=== PATIENT | female | born 1935 | race Caucasian/White ===

== ENCOUNTER 2019-12-20 19:56 | Inpatient (IN) | payer OTHER, BC ==
[2019-12-20 20:03] VITALS: BMI 18.3
--- NOTE | 2019-12-20 22:43 | PDOC ---
Documentation entered by Shelly Anderson SCRIBE, acting as scribe for Hilda Vargas DO. Hilda Vargas DO: This documentation has been prepared by the Justin carrillo Nirvannie, SCRIBE, under my direction and personally reviewed by me in its entirety. I confirm that the documentation accurately reflects all work, treatment, procedures, and medical decision making performed by me. History of Present Illness - General Chief Complaint: Injury Stated Complaint: FALL Time Seen by Provider: 12/20/19 20:28 History Source: Patient Exam Limitations: No Limitations - History of Present Illness Initial Comments: 12/20/19 22:14 The patient is a 84 year old female, with a significant past medical history of hypertension and Afib (on Xarelto), who presents to the emergency department s/ p mechanical fall with headache, low back, right upper arm, and left wrist pain. As per patient and family, she fell over the family dog. Patient is unaware if she hit her head. She denies recent chest pain or shortness of breath. Allergies: NKDA Past History - Past Medical History Allergies/Adverse Reactions: Allergies Allergy/AdvReac Type Severity Reaction Status Date / Time No Known Allergies Allergy Verified 12/20/19 20:02 Anemia: Yes Cardiac Disorders: Yes (A-FIB) COPD: No HTN: Yes - Psycho Social/Smoking Cessation Hx Smoking History: Never smoked Review of Systems - Review of Systems Able to Perform ROS?: Yes Comments:: 12/20/19 22:14 GENERAL/CONSTITUTIONAL: No fever or chills. No weakness. HEAD, EYES, EARS, NOSE AND THROAT: No change in vision. No ear pain or discharge. No sore throat. GASTROINTESTINAL: No nausea, vomiting, diarrhea or constipation. GENITOURINARY: No dysuria, frequency, or change in urination. CARDIOVASCULAR: No chest pain or shortness of breath. RESPIRATORY: No cough, wheezing, or hemoptysis. MUSCULOSKELETAL: +Low back pain. + Right upper arm pain. +left wrist pain, SKIN: No rash NEUROLOGIC: +Headache. No vertigo, loss of consciousness, or change in strength/ sensation. ENDOCRINE: No increased thirst. No abnormal weight change. HEMATOLOGIC/LYMPHATIC: No anemia, easy bleeding, or history of blood clots. ALLERGIC/IMMUNOLOGIC: No hives or skin allergy. All Other Systems: Reviewed and Negative *Physical Exam - Vital Signs Last Vital Signs Temp Pulse Resp BP Pulse Ox 97.7 F 84 18 179/87 H 97 12/20/19 20:00 12/20/19 20:00 12/20/19 20:00 12/20/19 20:00 12/20/19 20:00 - Physical Exam 12/20/19 22:14 GENERAL: Awake, in no acute distress HEAD: No signs of trauma EYES: PERRLA, EOMI, sclera anicteric, conjunctiva clear, visual acuity grossly intact ENT: Moist mucosa NECK: Normal ROM, supple, no lymphadenopathy or JVD. LUNGS: Breath sounds equal, clear to auscultation bilaterally. No wheezes, and no crackles. Normal work of breathing. HEART: Regular rate and rhythm, normal S1 and S2, no murmurs, rubs or gallops ABDOMEN: Soft, nontender, normoactive bowel sounds. No guarding. Non- distended. BACK: +Tenderness to the lumbosacral region. EXTREMITIES:+Tenderness and swelling to the left distal radial head. Pain with passive and active motion of the medial humerus of the right upper extremity. No clubbing or cyanosis. No erythema. NEUROLOGICAL: GCS 15. Alert, and oriented x4, Nonfocal. SKIN: Warm, Dry, normal turgor, no rashes or lesions noted. ED Treatment Course - RADIOLOGY Radiology Studies Ordered: Category Date Time Status CERVICAL SPINE CT W/O CONTR [CT] Stat CT Scan 12/20/19 20:[address] WITHOUT CONTRAST [CT] Stat CT Scan 12/20/19 20:[address] W/O CONTRAST [CT] Stat CT Scan 12/20/19 20:[address] WITHOUT CONTRAST [CT] Stat CT Scan 12/20/19 20:34 Completed HAND- LEFT [RAD] Stat Radiology 12/20/19 20:34 Taken HUMERUS-LEFT [RAD] Stat Radiology 12/20/19 20:34 Taken HUMERUS-RIGHT [RAD] Stat Radiology 12/20/19 20:34 Taken Medical Decision Making - Medical Decision Making 12/20/19 [id number] female status post fall with pain to bilateral upper extremities as well as the low back CT scan of the head cervical spine and lumbar spine as well as pelvis show no acute fracture Patient is sensory intact, motion is extremely limited in the right upper extremity due to muscle tenderness There is a distal radius fracture on the left Splint applied, neurovascularly intact both before and after application Patient is sensory intact There are no secondary signs of acute spinal cord injury Due to patient's significant pain, lack of use of both upper extremities and residing alone she will be held for observation and PT evaluation for possible placement in short-term rehab Son is at the bedside and agrees with plan She is visiting and resides in [facility] Discharge - Discharge Information Problems reviewed: Yes Clinical Impression/Diagnosis: Fracture of left distal radius Qualifiers: Encounter type: initial encounter Fracture type: closed Fracture morphology: unspecified fracture morphology Qualified Code(s): S52.502A - Unspecified fracture of the lower end of left radius, initial encounter for closed fracture Strain of right upper arm Qualifiers: Encounter type: initial encounter Qualified Code(s): S46.911A - Strain of unspecified muscle, fascia and tendon at shoulder and upper arm level, right arm , initial encounter Condition: Stable - Follow up/Referral - Patient Discharge Instructions - Post Discharge Activity
--- NOTE | 2019-12-20 23:45 | PN ---
Teaching Attending Note Name of Resident: Amrita Muniz ATTENDING PHYSICIAN STATEMENT I saw and evaluated the patient. I reviewed the resident's note and discussed the case with the resident. I agree with the resident's findings and plan as documented. SUBJECTIVE: Patient is an 84 year old woman with a PMH of Hypertension and Afib (on Xarelto) , who presents to the ER after a fall, complaining of headache, low back, right upper arm, and left wrist pain. As per patient and family, she fell over the family dog. Patient is unaware if she hit her head. She denies recent chest pain or shortness of breath. Patient lives alone and denies photophobia, vomiting, abdominal pain, dysuria, diarrhea, frequency or urgency. Denies alcohol, tobacco or illicit drug use. No sick contacts or recent travels. OBJECTIVE: Alert Vital Signs Period Temp Pulse Resp BP Sys/Munoz Pulse Ox Last 24 Hr 97.7 F 84 18 179/87 97 HEENT: No Jaundice, eye redness or discharge, PERRLA, EOMI. Normocephalic, atraumatic. External ears are normal and hearing is grossly intact. No nasal discharge. Neck: Supple, nontender. No palpable adenopathy or thyromegaly. No JVD Chest: Good effort. Clear to auscultation and percussion. Heart: Regular. No S3, rub or murmur Abdomen: Not distended, soft, nontender and no HSM. No rebound or guarding. Normal bowel sounds. Ext: Tenderness to the lumbosacral region. Tenderness and swelling to the left distal radial head. Pain with passive and active motion of the medial humerus of the right upper extremity. Unable to move upper extremities. Peripheral pulses intact. No leg edema. Skin: Warm and dry. No petechiae, rash or ecchymosis. Neuro: Alert. Oriented x3. CN 2-12 grossly intact. Sensation grossly intact in all four extremities and DTR are symmetric. Psych: Appropriate mood and affect. Good insight. Current Medications Generic Name Dose Route Start Last Admin Trade Name Freq PRN Reason Stop Dose Admin Acetaminophen 650 mg 12/21/19 02:47 Tylenol - PO Q4H PRN PAIN LEVEL 6-10 Home Medications Medication Instructions Recorded Amiodarone HCl [Cordarone -] 200 mg PO DAILY 12/21/19 Atorvastatin Ca [Lipitor] 20 mg PO HS 12/21/19 Ferrous Sulfate [Iron] 325 mg PO Q2D 12/21/19 Lisinopril [Prinivil] 5 mg PO DAILY 12/21/19 Rivaroxaban [Xarelto] 15 mg PO DAILY 12/21/19 Abnormal Lab Results 12/21/19 00:25 Chloride 109 H Anion Gap 7 L BUN 19.4 H ASSESSMENT AND PLAN: 1. Fall and Left radius fracture - No obvious precipitating factor for fall. Urinalysis, EKG and urine toxicology pending. CT scan of the head/cervical spine /lumbar spine as well as pelvis show no acute abnormality or fracture. No humerus fracture or hand fracture. Left distal radius fracture noted in the ER and was splinted. Will continue pain control and consult PT and Ortho. Monitor on telemetry and implement fall precautions. Get MRI of C-spine and repeat head CT in [address] of shoulders to rule out structural damage from this fall or prior falls. Will continue comprehensive care for all of patients comorbid conditions. 2. Uncontrolled hypertension - Restart suitable outpatient antihypertensive drugs when clinically appropriate. Revise regimen to ensure [id number] excellent BP control and recreational counselor patient on the injurious effects of uncontrolled hypertension. Nonpharmacologic measures to control hypertension like weight loss, salt restriction and exercise discussed. Importance of adherence to treatment regimen and attainment of normotension emphasized. 3. DVT prophylaxis - Lovenox 40 mg SQ q 24 hours. 4. Advance directives - Full code
[2019-12-21 00:45] LABS: HEMATOCRIT 43.5 % (32.4-45.2); HEMOGLOBIN 14.4 GM/dL (10.7-15.3); MCHC 33.1 g/dl (32.0-36.0); MEAN CELL VOLUME 93.8 fl (80-96); MEAN PLT VOLUME 8.9 fl (7.5-11.1); PLATELET COUNT 209 K/MM3 (134-434); RBC 4.64 M/mm3 (3.60-5.2); RDW 14.5 % (11.6-15.6); WHITE BLOOD COUNT 9.9 K/mm3 (4.0-10.0)
[2019-12-21 01:12] LABS: ALBUMIN 3.7 g/dl (3.4-5.0); BILIRUBIN,TOTAL 0.6 mg/dL (0.2-1); BLOOD UREA NITROGEN 19.4 mg/dL (7-18); CALCIUM 9.6 mg/dL (8.5-10.1); CREATININE 0.7 mg/dL (0.55-1.3); TOT PROT 6.7 g/dl (6.4-8.2)
--- NOTE | 2019-12-21 02:52 | HP ---
CHIEF COMPLAINT: fall PCP: @ [facility] HISTORY OF PRESENT ILLNESS: 84 y.o. F PMH HTN, A-fib on Xarelto, OA, prior b/l hip fractures now s/p left hip replacement presenting for mechanical fall. The patient lives on [address] & was visiting her children, daughter lives in [place]. She was at her daughter's house & the dog ran into her & she subsequently fell onto her R side (R arm and R buttock). Does not recall if she hit her head or fell onto her L side. Denies LOC. Patient has a history of falls & sustained fractures (b/l pelvis), follows up with doctors at [facility] where she would like to be transferred in the morning. States she lives alone but tends to her ADLs well doesnt require help. ER course was notable for: (1) L hand XR: distal radial fracture (2) htn 179/87-- resolved w/o meds (3) Recent Travel: from [place] yesterday PAST MEDICAL HISTORY: as per hpi PAST SURGICAL HISTORY: R hip ORIF Social History: Smoking: denies Alcohol: denies Drugs: denies Allergies No Known Allergies Allergy (Verified 12/20/19 20:02) HOME MEDICATIONS: Home Medications Medication Instructions Recorded Amiodarone HCl [Cordarone -] 200 mg PO DAILY 12/21/19 Atorvastatin Ca [Lipitor] 20 mg PO HS 12/21/19 Ferrous Sulfate [Iron] 325 mg PO Q2D 12/21/19 Lisinopril [Prinivil] 5 mg PO DAILY 12/21/19 Rivaroxaban [Xarelto] 15 mg PO DAILY 12/21/19 REVIEW OF SYSTEMS CONSTITUTIONAL: Absent: fever, chills, diaphoresis, generalized weakness, malaise, loss of appetite, weight change HEENT: Absent: rhinorrhea, nasal congestion, throat pain, throat swelling, difficulty swallowing, mouth swelling, ear pain, eye pain, visual changes CARDIOVASCULAR: Absent: chest pain, syncope, palpitations, irregular heart rate, lightheadedness , peripheral edema RESPIRATORY: Absent: cough, shortness of breath, dyspnea with exertion, orthopnea, wheezing, stridor, hemoptysis GASTROINTESTINAL: Absent: abdominal pain, abdominal distension, nausea, vomiting, diarrhea, constipation, melena, hematochezia GENITOURINARY: Absent: dysuria, frequency, urgency, hesitancy, hematuria, flank pain, genital pain MUSCULOSKELETAL: arthralgia Absent: myalgia, joint swelling, back pain, neck pain SKIN: Absent: rash, itching, pallor HEMATOLOGIC/IMMUNOLOGIC: Absent: easy bleeding, easy bruising, lymphadenopathy, frequent infections ENDOCRINE: Absent: unexplained weight gain, unexplained weight loss, heat intolerance, cold intolerance NEUROLOGIC: Absent: headache, focal weakness or paresthesias, dizziness, unsteady gait, seizure, mental status changes, bladder or bowel incontinence PSYCHIATRIC: Absent: anxiety, depression, suicidal or homicidal ideation, hallucinations. PHYSICAL EXAMINATION Vital Signs - 24 hr 12/20/19 12/21/19 20:00 00:50 Temperature 97.7 F Pulse Rate 84 Respiratory 18 Rate Blood Pressure 179/87 H O2 Sat by Pulse 97 97 Oximetry (%) GENERAL: Awake, alert, and fully oriented, in no acute distress. HEENT: NCAT. No JVD. MMM. LUNGS: Breath sounds equal, clear to auscultation bilaterally. No wheezes, and no crackles. No accessory muscle use. HEART: Regular rate and rhythm, normal S1 and S2 without murmur, rub or gallop. ABDOMEN: Soft, nontender, not distended, normoactive bowel sounds, no guarding, no rebound, no masses. No hepatomegaly or splenomegaly. UPPER EXTREMITIES: 2+ pulses, warm, well-perfused. Limited ROM of b/l UE. RUE-- good handgrip strength; motor 2/5, diminished ROM. LUE-- diminished handgrip strength, 2/5motor, diminished ROM. Cannot lift arms to 90 degrees. Sensation intact b/l UE. No peripheral edema. LOWER EXTREMITIES: 2+ pulses, warm, well-perfused. No calf tenderness. No peripheral edema. NEUROLOGICAL: Diminished CNXI, difficulty raising shoulders without or against resistance. PSYCHIATRIC: Appropriate mood and affect. SKIN: Small healing hematomas noted on LLE. Laboratory Results - last 24 hr 12/21/19 12/21/19 00:25 00:25 WBC 9.9 RBC 4.64 Hgb 14.4 Hct 43.5 MCV 93.8 MCH 31.0 MCHC 33.1 RDW 14.5 Plt Count 209 MPV 8.9 Sodium 142 Potassium 4.0 Chloride 109 H Carbon Dioxide 25 Anion Gap 7 L BUN 19.4 H Creatinine 0.7 Est GFR (CKD-EPI)AfAm 92.21 Est GFR (CKD-EPI)NonAf 79.56 Random Glucose 100 Calcium 9.6 Total Bilirubin 0.6 AST 27 ALT 41 Alkaline Phosphatase 116 Total Protein 6.7 Albumin 3.7 ASSESSMENT/PLAN: 84 y.o. F PMH HTN, A-fib on Xarelto, OA, prior b/l hip fractures admitted for mechanical fall #Mechanical fall -sustained L distal radial fracture, f/u final XR read -ortho consulted, Dr. Cifuentes -CT head negative for acute bleeds/ fx-- repeat CT head ordered in 24hrs as patient is on xarelto -F/u shoulder XR's, pelvis CT, humerus XR -CT C & L spine negative for fracture; incidental 5.4x4cm R post adnexal cyst noted -f/u UA -poss neuro eval-- patient may benefit from MRI C-spine as she states she has minimal ROM of RUE at baseline #A-fib -resume xarelto -ct head negative for acute bleeds -EKG requested from [facility]; EKG here pending, f/u #HTN -resume home anti HTN meds #OA -patient cannot remember date of last DEXA, may be beneficial on this visit #dispo med surg Visit type - Emergency Visit Emergency Visit: Yes ED Registration Date: 12/20/19 Care time: The patient presented to the Emergency Department on the above date and was hospitalized for further evaluation of their emergent condition. - New Patient This patient is new to me today: Yes Date on this admission: 12/21/19 - Critical Care Critical Care patient: No ATTENDING PHYSICIAN STATEMENT I saw and evaluated the patient. I reviewed the resident's note and discussed the case with the resident. I agree with the resident's findings and plan as documented. SUBJECTIVE: OBJECTIVE: ASSESSMENT AND PLAN:
[2019-12-21] MEDS: ACETAMINOPHEN 325 MG TABLET (FP) PO PRN ×4 (03:11→16:10)
[2019-12-21 06:12] LABS: URINE APPEARANCE TURBID; URINE BILIRUBIN NEGATIVE (NEGATIVE); URINE COLOR YELLOW; URINE GLUCOSE (UA) NEGATIVE (NEGATIVE); URINE KETONE NEGATIVE (NEGATIVE); URINE LEUK ESTERASE NEGATIVE (NEGATIVE); URINE NITRITE NEGATIVE (NEGATIVE); URINE PROTEIN NEGATIVE (NEGATIVE)
[2019-12-21 07:55] LABS: BASO % 0.6 % (0-2.0); HEMATOCRIT 37.3 % (32.4-45.2); HEMOGLOBIN 12.6 GM/dL (10.7-15.3); LYMPH % 13.2 % (8-40); MCH 31.2 pg (25.7-33.7); MCHC 33.8 g/dl (32.0-36.0); MEAN CELL VOLUME 92.3 fl (80-96); MEAN PLT VOLUME 9.2 fl (7.5-11.1); MONO % 11.2 % (3.8-10.2); PLATELET COUNT 192 K/MM3 (134-434); RBC 4.04 M/mm3 (3.60-5.2); RDW 14.4 % (11.6-15.6); WHITE BLOOD COUNT 7.4 K/mm3 (4.0-10.0)
[2019-12-21 08:02] LABS: INR 1.06 (0.83-1.09); PROTHROMBIN TIME (PATIENT) 12.5 SEC (9.7-13.0)
[2019-12-21 08:05] LABS: ACTIVATED PTT 37.3 SECONDS (25.2-36.5)
--- NOTE | 2019-12-21 08:47 | CONSULT ---
Consult - text type - Consultation Consultation Note: ORTHOPEDIC SURGERY CONSULTATION NOTE Department of Orthopedic Surgery HISTORY OF PRESENT ILLNESS Ms Cruz is a 84 year old right hand dominant female with PMH of HTN, A-fib on Xarelto, OA, prior b/l hip fractures now s/p left hip replacement s/p years ago presenting after mechanical fall. The patient lives on [address] & was visiting her children, daughter lives in [place].who presents to [facility] after a fall. The orthopedic service was consulted for a left distal radius fracture. She also complains of not being able to flex her right shoulder which is new after her fall. The patient notes pain and swelling of her left wrist, worse with movement. Denies any other injuries. Denies numbness, tingling or other constitutional complaints. The patient is retired; Denies tobacco use, drug use , alcohol abuse. The patient lives alone at home and uses no assistive devices at baseline. FAMILY HISTORY non-contributory REVIEW OF SYMPTOMS A twelve-point review of systems was performed and was negative except as noted in HPI. PHYSICAL EXAM Constitutional: Alert and oriented to person, place, and time. Appears well- developed and well-nourished. No acute distress, appropriate mood and affect. Right Upper Extremity: Skin warm, dry, and intact; no lesions, rashes or ulcers noted. Muscle mass equal and symmetric to contralateral side. No atrophy noted. No masses or effusions noted. Non-tender to palpation at the shoulder, however she is unable to actively flex her shoulder; PROM of FF of the right shoulder is to 120 wiht mild to moderate pain; LROM at the shoulder secondary to pain. nontender throughout rest of extremity. Full passive and active ROM of the elbow and wrist, free from pain. Joints stable with no pathologic laxity. M/R/U/ MSK/AX motor intact; SILT distally; 2+ radial pulses; Cap refill brisk. Tone and reflexes normal. Left Upper Extremity: Skin warm, dry, and intact; no lesions, rashes or ulcers noted. Muscle mass equal and symmetric to contralateral side. No atrophy noted. No masses or effusions noted. Tender to palpation at tbe left wrist; nontender throughout rest of extremity. LROM of the wrist secondary to pain and swelling; Full passive and active ROM of the shoulder and elbow, free from pain. Joints stable with no pathologic laxity. M/R/U/MSK/AX motor intact; SILT distally; 2+ radial pulses; Cap refill brisk. Tone and reflexes normal. Right Lower Extremity: Skin warm, dry, and intact; no lesions, rashes or ulcers noted. Muscle mass equal and symmetric to contralateral side. No atrophy noted. No masses or effusions noted. No tenderness to palpation all joints; nontender throughout rest of extremity. No cords or calf tenderness; Able to SLR; Negative log roll test; No significant calf/ankle edema. Full passive and active ROM, free from pain. Joints stable with no pathologic laxity. EHL/TA/GS motor intact; SILT distally; 2+ DP pulses; Cap refill brisk. Tone and reflexes normal. Left Lower Extremity: Skin warm, dry, and intact; no lesions, rashes or ulcers noted. Muscle mass equal and symmetric to contralateral side. No atrophy noted. No masses or effusions noted. No tenderness to palpation all joints; nontender throughout rest of extremity. No cords or calf tenderness; Able to SLR; Negative log roll test; No significant calf/ankle edema. Full passive and active ROM, free from pain. Joints stable with no pathologic laxity. EHL/TA/GS motor intact; SILT distally; 2+ DP pulses; Cap refill brisk. Tone and reflexes normal. Active Problems Problem Status Category Onset Fracture of left distal radius Acute Medical Strain of right upper arm Acute Medical Social History Smoking history Never smoked Hx Alcohol Use No Allergies Allergy/AdvReac Type Severity Reaction Status Date / Time No Known Allergies Allergy Verified 12/20/19 20:02 Active Medications Generic Name Dose Route Start Last Admin Trade Name Freq PRN Reason Stop Dose Admin Acetaminophen 650 mg 12/21/19 02:47 12/21/19 07:16 Tylenol - PO 650 mg Q4H PRN Administration PAIN LEVEL 6-10 Vital Signs (last) Temp Pulse Resp BP Pulse Ox 99.4 F 77 16 147/78 94 L 12/21/19 06:39 12/21/19 06:39 12/21/19 06:39 12/21/19 02:41 12/21/19 03:07 Intake and Output 12/19/19 12/20/19 12/21/19 23:59 23:59 23:59 Intake Total 0 Balance 0 Intake: Oral 0 Other: Voiding Method Bedpan # Unmeasured Voids Void 1 Bowel Movement No Weight 100 lb 100 lb 6.4 oz Height 5 ft 2 in 5 ft 2 in Body Mass Index (BMI) 18.3 18.3 Weight Measurement Method [facility] Measurement Method Est/Stated by Patient Laboratory 12/21/19 06:56 PT with INR 12.50 SEC (9.7-13.0) 12/21/19 06:56 PTT (Actin FS) 37.3 SECONDS (25.2-36.5) H 12/21/19 06:56 IMAGING I personally reviewed all radiographs, CT, and other imaging. They demonstrate a left distal radius fracture. ASSESSMENT AND PLAN Ms. Cruz is a 84 year old female presenting status post mechanical fall with a left sided distal radius fracture, and likely rotator cuff tear of the right shoulder. We have reviewed the imaging and clinical findings in detail, as well as their potential implications. After appropriate informed discussion, the patient was placed in a well-padded splint. Patient was instructed regarding: non weight bearing on fractured side. signs and symptoms of compartment syndrome and need to seek immediate care should new onset numbness, tingling, or significantly increasing pain occur. maintain strict elevation above the level of the heart for the next 3-4 days. keeping the splint clean and dry. avoiding NSAID medications. All questions were answered. Thank you for involving our team in the care of this patient. Please have patient follow up in our office in 1-2 weeks either with her own orthopedic surgeon at [facility] in , or in our office. Thank you. PROCEDURE NOTE: After informed consent was obtained, a slight reduction maneuver was performed, and the patient was placed in a well-padded sugartong splint. She tolerated the procedure well and was instructed on splint management and icing and elevating. She understood and felt relief after the splint was applied.
[2019-12-21 08:51] LABS: ALBUMIN 3.2 g/dl (3.4-5.0); BILIRUBIN,TOTAL 0.6 mg/dL (0.2-1); BLOOD UREA NITROGEN 18.8 mg/dL (7-18); CALCIUM 9.2 mg/dL (8.5-10.1); CREATININE 0.6 mg/dL (0.55-1.3); POTASSIUM 3.8 mmol/L (3.5-5.1); TOT PROT 5.8 g/dl (6.4-8.2)
--- NOTE | 2019-12-21 09:19 | PN ---
Teaching Attending Note Name of Resident: Roxana Hahn ATTENDING PHYSICIAN STATEMENT I saw and evaluated the patient. I reviewed the resident's note and discussed the case with the resident. I agree with the resident's findings and plan as documented. SUBJECTIVE: Patient is a 84yof with PMhx of HTN, A-fib on Xarelto, OA, prior b/l hip fractures now s/p left hip replacement presenting for mechanical fall. OBJECTIVE: Initial Vital Signs Temp Pulse Resp BP Pulse Ox 97.7 F 84 18 179/87 H 97 12/20/19 20:00 12/20/19 20:00 12/20/19 20:00 12/20/19 20:00 12/20/19 20:00 Vital Signs Temperature 99.4 F 12/21/19 06:39 Pulse Rate 77 12/21/19 06:39 Respiratory Rate 16 12/21/19 06:39 Blood Pressure 147/78 12/21/19 02:41 O2 Sat by Pulse Oximetry (%) 94 L 12/21/19 03:07 GENERAL: The patient is awake, alert, and fully oriented, in no acute distress. HEAD: Normal with no signs of trauma. EYES: PERRL, EOMI, sclera anicteric, conjunctiva clear. ENT: Ears normal, oropharynx clear without exudates, moist mucous membranes. NECK: Trachea midline, full range of motion, supple. LUNGS: Breath sounds equal, clear to auscultation bilaterally, no wheezes, no crackles, no accessory muscle use. HEART: RRR, S1, S2 without murmur, rub or gallop. ABDOMEN: Soft, NT,ND, normoactive bowel sounds, no guarding, no rebound, no hepatosplenomegaly, no masses. EXTREMITIES: 2+ pulses, warm, well-perfused, left distal radial fracture s/p casting NEUROLOGICAL: Cranial nerves II through XII grossly intact. Normal speech, gait not observed. PSYCH: Normal mood, normal affect. SKIN: Warm, dry, normal turgor, no rashes or lesions noted CBCD WBC 7.4 K/mm3 (4.0-10.0) 12/21/19 06:56 RBC 4.04 M/mm3 (3.60-5.2) 12/21/19 06:56 Hgb 12.6 GM/dL (10.7-15.3) 12/21/19 06:56 Hct 37.3 % (32.4-45.2) 12/21/19 06:56 MCV 92.3 fl (80-96) 12/21/19 06:56 MCHC 33.8 g/dl (32.0-36.0) 12/21/19 06:56 RDW 14.4 % (11.6-15.6) 12/21/19 06:56 Plt Count 192 K/MM3 (134-434) 12/21/19 06:56 MPV 9.2 fl (7.5-11.1) 12/21/19 06:56 CMP Sodium 141 mmol/L (136-145) 12/21/19 06:56 Potassium 3.8 mmol/L (3.5-5.1) 12/21/19 06:56 Chloride 110 mmol/L (98-107) H 12/21/19 06:56 Carbon Dioxide 23 mmol/L (21-32) 12/21/19 06:56 Anion Gap 8 MMOL/L (8-16) 12/21/19 06:56 BUN 18.8 mg/dL (7-18) H 12/21/19 06:56 Creatinine 0.6 mg/dL (0.55-1.3) 12/21/19 06:56 Random Glucose 85 mg/dL (74-106) 12/21/19 06:56 Calcium 9.2 mg/dL (8.5-10.1) 12/21/19 06:56 Total Bilirubin 0.6 mg/dL (0.2-1) 12/21/19 06:56 AST 22 U/L (15-37) 12/21/19 06:56 ALT 37 U/L (13-61) 12/21/19 06:56 Alkaline Phosphatase 101 U/L (45-117) 12/21/19 06:56 Total Protein 5.8 g/dl (6.4-8.2) L 12/21/19 06:56 Albumin 3.2 g/dl (3.4-5.0) L 12/21/19 06:56 Current Medications Generic Name Dose Route Start Last Admin Trade Name Freq PRN Reason Stop Dose Admin Acetaminophen 650 mg 12/21/19 02:47 12/21/19 07:16 Tylenol - PO 650 mg Q4H PRN Administration PAIN LEVEL 6-10 Home Medications Medication Instructions Recorded Amiodarone HCl [Cordarone -] 200 mg PO DAILY 12/21/19 Atorvastatin Ca [Lipitor] 20 mg PO HS 12/21/19 Ferrous Sulfate [Iron] 325 mg PO Q2D 12/21/19 Lisinopril [Prinivil] 5 mg PO DAILY 12/21/19 Rivaroxaban [Xarelto] 15 mg PO DAILY 12/21/[address]: no fx is identified.Adnexal cyst 5.4x4cm. Left hand xray ; loss of bone density , acute impaction fracture of distal radius , possible old ulnar styloid fx Ct of the head: negative X-ray of right humurus: degenerative changes , no sign of fx or sublaxation. Pelvis CT: no definite CT evidence of acute fx , adnexal cyst 5.4x4cm right posterior -CT C & L spine negative for fracture; incidental 5.4x4cm R post adnexal cyst noted ASSESSMENT AND PLAN: Patient is an 84yof with PMHx of HTN, A-fib on Xarelto, OA, prior b/l hip fractures admitted for mechanical fall. #s/p Mechanical fall s/p L distal radial fracture, ortho on the case who has seen the patient in Ed. #A-fib continue xarelto #HTN: continue home meds #hx of hip replacement # Hx of OA , added Vit d3 continue #Right posterior adnexal mass : outpatient w/u #CT head negative for acute bleeds, repeat CT head since patient is on xarelto , but patient refused. DVt px: SCDs for now.
--- NOTE | 2019-12-21 11:53 | EKG ---
Test Reason : Blood Pressure : / mmHG Vent. Rate : 075 BPM Atrial Rate : 075 BPM P-R Int : 212 ms QRS Dur : 138 ms QT Int : 476 ms P-R-T Axes : 057 -12 087 degrees QTc Int : 531 ms SINUS RHYTHM WITH 1ST DEGREE A-V BLOCK LEFT BUNDLE BRANCH BLOCK ABNORMAL ECG NO PREVIOUS ECGS AVAILABLE Confirmed by CHRISTIAN CAIN MD ([id number]) on 12/21/2019 11:53:09 AM Referred By: Confirmed By:CHRISTIAN CAIN MD
--- NOTE | 2019-12-21 14:10 | PN ---
Physical Exam: SUBJECTIVE: Patient seen and examined at bedside. pt is not currently having significant pain but is having a hard time eating as she cannot use full ROM of her arms OBJECTIVE: Vital Signs Period Temp Pulse Resp BP Sys/Munoz Pulse Ox Last 24 Hr 97.7 F-99.4 F 72-84 16-20 109-179/65-87 93-97 GENERAL: The patient is awake, alert, and fully oriented, in no acute distress. HEAD: Normal with no signs of trauma. LUNGS: Breath sounds equal, clear to auscultation bilaterally, no wheezes, no crackles, no accessory muscle use. HEART:regular rate and rhythm, S1, S2 ABDOMEN: Soft, nontender, nondistended, normoactive bowel sounds, no guarding EXTREMITIES: 2+ pulses, warm, well-perfused, no edema. splint on L arm. poor ROM of R arm. cannot abduct or extend arm forward. no pain on passive rom. no ttp of R shoulder SKIN: Warm, dry, normal turgor, no rashes or lesions noted Laboratory Results - last 24 hr 12/21/19 12/21/19 12/21/19 00:25 00:25 05:20 WBC 9.9 RBC 4.64 Hgb 14.4 Hct 43.5 MCV 93.8 MCH 31.0 MCHC 33.1 RDW 14.5 Plt Count 209 MPV 8.9 Absolute Neuts (auto) Neutrophils % Lymphocytes % Monocytes % Eosinophils % Basophils % Nucleated RBC % PT with INR INR PTT (Actin FS) Sodium 142 Potassium 4.0 Chloride 109 H Carbon Dioxide 25 Anion Gap 7 L BUN 19.4 H Creatinine 0.7 Est GFR (CKD-EPI)AfAm 92.21 Est GFR (CKD-EPI)NonAf 79.56 Random Glucose 100 Calcium 9.6 Total Bilirubin 0.6 AST 27 ALT 41 Alkaline Phosphatase 116 Total Protein 6.7 Albumin 3.7 Urine Color Yellow Urine Appearance Turbid Urine pH 8.0 Ur Specific [place] 1.017 Urine Protein Negative Urine Glucose (UA) Negative Urine Ketones Negative Urine Blood Negative Urine Nitrite Negative Urine Bilirubin Negative Urine Urobilinogen 1.0 Ur Leukocyte Esterase Negative 12/21/19 12/21/19 12/21/19 06:56 06:56 06:56 WBC 7.4 RBC 4.04 Hgb 12.6 Hct 37.3 MCV 92.3 MCH 31.2 MCHC 33.8 RDW 14.4 Plt Count 192 MPV 9.2 Absolute Neuts (auto) 5.5 Neutrophils % 74.0 Lymphocytes % 13.2 Monocytes % 11.2 H Eosinophils % 1.0 Basophils % 0.6 Nucleated RBC % 0 PT with INR 12.50 INR 1.06 PTT (Actin FS) 37.3 H Sodium 141 Potassium 3.8 Chloride 110 H Carbon Dioxide 23 Anion Gap 8 BUN 18.8 H Creatinine 0.6 Est GFR (CKD-EPI)AfAm 97.01 Est GFR (CKD-EPI)NonAf 83.70 Random Glucose 85 Calcium 9.2 Total Bilirubin 0.6 AST 22 ALT 37 Alkaline Phosphatase 101 Total Protein 5.8 L Albumin 3.2 L Urine Color Urine Appearance Urine pH Ur Specific [place] Urine Protein Urine Glucose (UA) Urine Ketones Urine Blood Urine Nitrite Urine Bilirubin Urine Urobilinogen Ur Leukocyte Esterase Current Medications Acetaminophen (Tylenol -) 650 mg PO Q4H PRN PRN Reason: PAIN LEVEL 6-10 Last Admin: 12/21/19 11:35 Dose: 650 mg Amiodarone HCl (Cordarone -) 200 mg PO DAILY [facility] Atorvastatin Calcium (Lipitor -) 20 mg PO HS ANITA Lisinopril (Prinivil) 5 mg PO DAILY [facility] ASSESSMENT/PLAN: 84 y.o. F PMH HTN, A-fib on Xarelto, OA, prior b/l hip fractures admitted for mechanical fall L distal radial fx from Mechanical fall -sustained L distal radial fracture -ortho consulted, Dr. Cifuentes. seen by dr. Dave today -CT head negative for acute bleeds/ fx-- repeat CT head ordered in 24hrs as patient is on xarelto -shoulder XR's, pelvis CT, humerus XR negative -CT C & L spine negative for fracture; incidental 5.4x4cm R post adnexal cyst noted - MRI C-spine as she states she has minimal ROM of RUE at baseline A-fib -resume xarelto -EKG requested from [facility]; EKG here pending, f/u HTN -resume home anti HTN meds OA -patient cannot remember date of last DEXA, may be beneficial on this visit dispo: med surg. SUSAN sent for rehab. Visit type - Emergency Visit Emergency Visit: No - New Patient This patient is new to me today: No - Critical Care Critical Care patient: No - Discharge Referral Referred to [facility] Med P.C.: No ATTENDING PHYSICIAN STATEMENT I saw and evaluated the patient. I reviewed the resident's note and discussed the case with the resident. I agree with the resident's findings and plan as documented. SUBJECTIVE: OBJECTIVE: ASSESSMENT AND PLAN:
[2019-12-21] MEDS: ATORVASTATIN CA 20 MG TABLET (FP) PO SCH (21:06)
[2019-12-22] MEDS: ACETAMINOPHEN 325 MG TABLET (FP) PO PRN ×3 (00:35→23:29)
[2019-12-22 08:56] LABS: BLOOD UREA NITROGEN 14.5 mg/dL (7-18); CALCIUM 9.3 mg/dL (8.5-10.1); CREATININE 0.6 mg/dL (0.55-1.3); MAGNESIUM 2.6 mg/dL (1.8-2.4); PHOSPHOROUS 2.5 mg/dL (2.5-4.9); POTASSIUM 3.8 mmol/L (3.5-5.1)
--- NOTE | 2019-12-22 09:33 | PN ---
Teaching Attending Note Name of Resident: Roxana Hahn ATTENDING PHYSICIAN STATEMENT I saw and evaluated the patient. I reviewed the resident's note and discussed the case with the resident. I agree with the resident's findings and plan as documented. SUBJECTIVE: Patient is comfortable with no acute distress, no nausea or vomiting, no shortness of breath. OBJECTIVE: Vital Signs Temperature 98.9 F 12/22/19 01:56 Pulse Rate 77 12/22/19 01:56 Respiratory Rate 18 12/22/19 01:56 Blood Pressure 138/92 12/22/19 01:56 O2 Sat by Pulse Oximetry (%) 93 L 12/21/19 21:00 GENERAL: The patient is awake, alert, and fully oriented, in no acute distress. HEAD: Normal with no signs of trauma. EYES: PERRL, EOMI, sclera anicteric, conjunctiva clear. ENT: Ears normal, oropharynx clear without exudates, moist mucous membranes. NECK: Trachea midline, full range of motion, supple. LUNGS: Breath sounds equal, clear to auscultation bilaterally, no wheezes, no crackles, no accessory muscle use. HEART: RRR, S1, S2 +, CATALINO 2/6 , no rub or gallop. ABDOMEN: Soft, NT,ND, normoactive bowel sounds, no guarding, no rebound, no hepatosplenomegaly, no masses. EXTREMITIES: 2+ pulses, warm, well-perfused, left distal radial fracture s/p casting NEUROLOGICAL: Cranial nerves II through XII grossly intact. Normal speech, gait not observed. PSYCH: Normal mood, normal affect. SKIN: Warm, dry, normal turgor, no rashes or lesions noted CBCD WBC 7.4 K/mm3 (4.0-10.0) 12/21/19 06:56 RBC 4.04 M/mm3 (3.60-5.2) 12/21/19 06:56 Hgb 12.6 GM/dL (10.7-15.3) 12/21/19 06:56 Hct 37.3 % (32.4-45.2) 12/21/19 06:56 MCV 92.3 fl (80-96) 12/21/19 06:56 MCHC 33.8 g/dl (32.0-36.0) 12/21/19 06:56 RDW 14.4 % (11.6-15.6) 12/21/19 06:56 Plt Count 192 K/MM3 (134-434) 12/21/19 06:56 MPV 9.2 fl (7.5-11.1) 12/21/19 06:56 CMP Sodium 143 mmol/L (136-145) 12/22/19 06:45 Potassium 3.8 mmol/L (3.5-5.1) 12/22/19 06:45 Chloride 112 mmol/L (98-107) H 12/22/19 06:45 Carbon Dioxide 24 mmol/L (21-32) 12/22/19 06:45 Anion Gap 6 MMOL/L (8-16) L 12/22/19 06:45 BUN 14.5 mg/dL (7-18) 12/22/19 06:45 Creatinine 0.6 mg/dL (0.55-1.3) 12/22/19 06:45 Random Glucose 79 mg/dL (74-106) 12/22/19 06:45 Calcium 9.3 mg/dL (8.5-10.1) 12/22/19 06:45 Total Bilirubin 0.6 mg/dL (0.2-1) 12/21/19 06:56 AST 22 U/L (15-37) 12/21/19 06:56 ALT 37 U/L (13-61) 12/21/19 06:56 Alkaline Phosphatase 101 U/L (45-117) 12/21/19 06:56 Total Protein 5.8 g/dl (6.4-8.2) L 12/21/19 06:56 Albumin 3.2 g/dl (3.4-5.0) L 12/21/19 06:56 Current Medications Generic Name Dose Route Start Last Admin Trade Name Freq PRN Reason Stop Dose Admin Acetaminophen 650 mg 12/21/19 02:47 12/22/19 00:35 Tylenol - PO 650 mg Q4H PRN Administration PAIN LEVEL 6-10 Amiodarone HCl 200 mg 12/22/19 10:00 Cordarone - PO DAILY [facility] Atorvastatin Calcium 20 mg 12/21/19 22:00 12/21/19 21:06 Lipitor - PO 20 mg HS [facility] Administration Cholecalciferol 2,000 unit 12/22/19 10:00 Vitamin D3 - PO DAILY [facility] Lisinopril 5 mg 12/22/19 10:00 Prinivil PO DAILY [facility] Rivaroxaban 15 mg 12/22/19 18:00 Xarelto PO DAILY@1800 [facility] Home Medications Medication Instructions Recorded Amiodarone HCl [Cordarone -] 200 mg PO DAILY 12/21/19 Atorvastatin Ca [Lipitor] 20 mg PO HS 12/21/19 Ferrous Sulfate [Iron] 325 mg PO Q2D 12/21/19 Lisinopril [Prinivil] 5 mg PO DAILY 12/21/19 Rivaroxaban [Xarelto] 15 mg PO DAILY 12/21/[address]: no fx is identified.Adnexal cyst 5.4x4cm. Left hand xray ; loss of bone density , acute impaction fracture of distal radius , possible old ulnar styloid fx Ct of the head: negative X-ray of right humurus: degenerative changes , no sign of fx or sublaxation. Pelvis CT: no definite CT evidence of acute fx , adnexal cyst 5.4x4cm right posterior -CT C & L spine negative for fracture; incidental 5.4x4cm R post adnexal cyst noted ASSESSMENT AND PLAN: Patient is an 84yof with PMHx of HTN, A-fib on Xarelto, OA, prior b/l hip fractures admitted for mechanical fall. #s/p Mechanical fall s/p L distal radial fracture, ortho on the case who has seen the patient in Ed. #A-fib continue xarelto #HTN: continue home meds #hx of hip replacement # Hx of OA , added Vit d3 continue #Right posterior adnexal mass : outpatient w/u #CT head negative for acute bleeds, repeat CT head since patient is on xarelto , but patient refused, patient was asked again for head CT refused agian , and son at bedside. H/H stable DVt px: SCDs for now. will stop Iron supplement since hgb is 12 now
[2019-12-22] MEDS ORDERED: LISINOPRIL 5 MG TABLET (FP) PO SCH (10:00)
[2019-12-22] MEDS ORDERED: AMIODARONE HCL 200 MG TABLET PO SCH (10:00)
[2019-12-22] MEDS: CHOLECALCIFEROL (VIT D3) 1,000 UNIT (25 MCG) TABLET PO SCH (10:14)
--- NOTE | 2019-12-22 17:09 | PN ---
Physical Exam: SUBJECTIVE: Patient seen and examined at bedside. pt has no acute complaints. OBJECTIVE: Vital Signs Period Temp Pulse Resp BP Sys/Munoz Pulse Ox Last 24 Hr 98.0 F-98.9 F 72-87 18-20 108-139/56-92 93-95 GENERAL: The patient is awake, alert, and fully oriented, in no acute distress. HEAD: Normal with no signs of trauma. EYES: PERRL, extraocular movements intact, sclera anicteric, conjunctiva clear. No ptosis. LUNGS: Breath sounds equal, clear to auscultation bilaterally HEART: Regular rate and rhythm, S1, S2 + murmur ABDOMEN: Soft, nontender, nondistended, normoactive bowel sounds, no guarding EXTREMITIES: 2+ pulses, warm, well-perfused, no edema. SKIN: Warm, dry, normal turgor, no rashes or lesions noted Laboratory Results - last 24 hr 12/22/19 06:45 Sodium 143 Potassium 3.8 Chloride 112 H Carbon Dioxide 24 Anion Gap 6 L BUN 14.5 Creatinine 0.6 Est GFR (CKD-EPI)AfAm 97.01 Est GFR (CKD-EPI)NonAf 83.70 Random Glucose 79 Calcium 9.3 Phosphorus 2.5 Magnesium 2.6 H TSH 2.17 Active Medications Generic Name Dose Route Start Last Admin Trade Name Freq PRN Reason Stop Dose Admin Acetaminophen 650 mg 12/21/19 02:47 12/22/19 10:13 Tylenol - PO 650 mg Q4H PRN Administration PAIN LEVEL 6-10 Atorvastatin Calcium 20 mg 12/21/19 22:00 12/21/19 21:06 Lipitor - PO 20 mg HS [facility]ITA Administration Cholecalciferol 2,000 unit 12/22/19 10:00 12/22/19 10:14 Vitamin D3 - PO 2,000 unit DAILY ANITA Administration Rivaroxaban 15 mg 12/22/19 18:00 Xarelto PO DAILY@1800 [facility] ASSESSMENT/PLAN: 84 y.o. F PMH HTN, A-fib on Xarelto, OA, prior b/l hip fractures admitted for mechanical fall L distal radial fx from Mechanical fall -sustained L distal radial fracture -ortho consulted, Dr. Cifuentes. seen by dr. Dave today -CT head negative for acute bleeds/ fx-- repeat CT head ordered in 24hrs as patient is on xarelto. Pt is refusing all further imaging. pt states she will not go to CT head . risks were explained to patient -shoulder XR's, pelvis CT, humerus XR negative -CT C & L spine negative for fracture; incidental 5.4x4cm R post adnexal cyst noted - MRI C-spine as she states she has minimal ROM of RUE at baseline A-fib -resume xarelto -[facility]; EKG here pending, f/u HTN -resume home anti HTN meds OA -patient cannot remember date of last DEXA, may be beneficial on this visit dispo: med surg. SUSAN sent for rehab. pt will be going tomorrow Visit type - Emergency Visit Emergency Visit: No - New Patient This patient is new to me today: No - Critical Care Critical Care patient: No - Discharge Referral Referred to [facility] Med P.C.: No ATTENDING PHYSICIAN STATEMENT I saw and evaluated the patient. I reviewed the resident's note and discussed the case with the resident. I agree with the resident's findings and plan as documented. SUBJECTIVE: OBJECTIVE: ASSESSMENT AND PLAN:
[2019-12-22] MEDS: RIVAROXABAN 15 MG TABLET PO SCH (18:06)
[2019-12-22] MEDS: AMIODARONE HCL 200 MG TABLET PO SCH (18:07)
[2019-12-22] MEDS: LISINOPRIL 5 MG TABLET (FP) PO SCH (18:07)
[2019-12-22] MEDS: ATORVASTATIN CA 20 MG TABLET (FP) PO SCH (21:05)
[2019-12-23] MEDS ORDERED: PT OWN MED DRAWER 7, Y5N ONE (09:38)
[2019-12-23] MEDS: AMIODARONE HCL 200 MG TABLET PO SCH (10:38)
[2019-12-23] MEDS: LISINOPRIL 5 MG TABLET (FP) PO SCH (10:39)
[2019-12-23] MEDS: CHOLECALCIFEROL (VIT D3) 1,000 UNIT (25 MCG) TABLET PO SCH (10:39)
[2019-12-23] MEDS: ACETAMINOPHEN 325 MG TABLET (FP) PO PRN (14:46)
[2019-12-23] MEDS: RIVAROXABAN 15 MG TABLET PO SCH (18:12)
--- NOTE | 2019-12-23 21:34 | PN ---
Progress Note (short form) - Note Progress Note: Patient is comfortable with acute distress. No shortness of breath. Vital Signs Temperature 97.9 F 12/23/19 17:32 Pulse Rate 69 12/23/19 17:32 Respiratory Rate 20 12/23/19 17:32 Blood Pressure 115/63 12/23/19 17:32 O2 Sat by Pulse Oximetry (%) 96 12/23/19 09:00 GENERAL: The patient is awake, alert, and fully oriented, in no acute distress. HEAD: Normal with no signs of trauma. EYES: PERRL, extraocular movements intact, sclera anicteric, conjunctiva clear. ENT: Ears normal, oropharynx clear without exudates, moist mucous membranes. NECK: Trachea midline, full range of motion, supple. LUNGS: Breath sounds equal, clear to auscultation bilaterally, no wheezes, no crackles, no accessory muscle use. HEART:irregularly-irregular , S1, S2 +, CATALINO 3/6 ,no rub or gallop. ABDOMEN: Soft, nontender, nondistended, normoactive bowel sounds, no guarding, no rebound, no hepatosplenomegaly, no masses. EXTREMITIES: 2+ pulses, warm, well-perfused, left distal radial fracture s/p NEUROLOGICAL: Cranial nerves II through XII grossly intact. Normal speech, gait not observed. PSYCH: Normal mood, normal affect. SKIN: Warm, dry, normal turgor, no rashes or lesions noted CBCD WBC 7.4 K/mm3 (4.0-10.0) 12/21/19 06:56 RBC 4.04 M/mm3 (3.60-5.2) 12/21/19 06:56 Hgb 12.6 GM/dL (10.7-15.3) 12/21/19 06:56 Hct 37.3 % (32.4-45.2) 12/21/19 06:56 MCV 92.3 fl (80-96) 12/21/19 06:56 MCHC 33.8 g/dl (32.0-36.0) 12/21/19 06:56 RDW 14.4 % (11.6-15.6) 12/21/19 06:56 Plt Count 192 K/MM3 (134-434) 12/21/19 06:56 MPV 9.2 fl (7.5-11.1) 12/21/19 06:56 CMP Sodium 143 mmol/L (136-145) 12/22/19 06:45 Potassium 3.8 mmol/L (3.5-5.1) 12/22/19 06:45 Chloride 112 mmol/L (98-107) H 12/22/19 06:45 Carbon Dioxide 24 mmol/L (21-32) 12/22/19 06:45 Anion Gap 6 MMOL/L (8-16) L 12/22/19 06:45 BUN 14.5 mg/dL (7-18) 12/22/19 06:45 Creatinine 0.6 mg/dL (0.55-1.3) 12/22/19 06:45 Random Glucose 79 mg/dL (74-106) 12/22/19 06:45 Calcium 9.3 mg/dL (8.5-10.1) 12/22/19 06:45 Total Bilirubin 0.6 mg/dL (0.2-1) 12/21/19 06:56 AST 22 U/L (15-37) 12/21/19 06:56 ALT 37 U/L (13-61) 12/21/19 06:56 Alkaline Phosphatase 101 U/L (45-117) 12/21/19 06:56 Total Protein 5.8 g/dl (6.4-8.2) L 12/21/19 06:56 Albumin 3.2 g/dl (3.4-5.0) L 12/21/19 06:56 Home Medications Medication Instructions Recorded Amiodarone HCl [Cordarone -] 200 mg PO DAILY 12/21/19 Atorvastatin Ca [Lipitor] 20 mg PO HS 12/21/19 Ferrous Sulfate [Iron] 325 mg PO Q2D 12/21/19 Lisinopril [Prinivil] 5 mg PO DAILY 12/21/19 Rivaroxaban [Xarelto] 15 mg PO DAILY 12/21/19 Current Medications Generic Name Dose Route Start Last Admin Trade Name Freq PRN Reason Stop Dose Admin Acetaminophen 650 mg 12/21/19 02:47 12/23/19 14:46 Tylenol - PO 650 mg Q4H PRN Administration PAIN LEVEL 6-10 Amiodarone HCl 200 mg 12/22/19 17:45 12/23/19 10:38 Cordarone - PO 200 mg DAILY [facility] Administration Atorvastatin Calcium 20 mg 12/21/19 22:00 12/22/19 21:05 Lipitor - PO 20 mg HS [facility] Administration Cholecalciferol 2,000 unit 12/22/19 10:00 12/23/19 10:39 Vitamin D3 - PO 2,000 unit DAILY [facility] Administration Lisinopril 5 mg 12/22/19 17:45 12/23/19 10:39 Prinivil PO 5 mg DAILY [facility] Administration Rivaroxaban 15 mg 12/22/19 18:00 12/23/19 18:12 Xarelto PO 15 mg DAILY@[address]: no fx is identified.Adnexal cyst 5.4x4cm. Left hand xray ; loss of bone density , acute impaction fracture of distal radius , possible old ulnar styloid fx Ct of the head: negative X-ray of right humurus: degenerative changes , no sign of fx or sublaxation. Pelvis CT: no definite CT evidence of acute fx , adnexal cyst 5.4x4cm right posterior -CT C & L spine negative for fracture; incidental 5.4x4cm R post adnexal cyst noted ASSESSMENT AND PLAN: Patient is an 84yof with PMHx of HTN, A-fib on Xarelto, OA, prior b/l hip fractures admitted for mechanical fall #s/p Mechanical fall s/p L distal radial fracture, ortho on the case who has seen the patient in Ed. on Vit D3 continue #A-fib continue xarelto #HTN: continue home meds #hx of hip replacement # Hx of OA #Right posterior adnexal mass : outpatient w/u dc to rehab in am Visit type - Emergency Visit Emergency Visit: Yes ED Registration Date: 12/20/19 Care time: The patient presented to the Emergency Department on the above date and was hospitalized for further evaluation of their emergent condition. - New Patient This patient is new to me today: No - Critical Care Critical Care patient: No - Discharge Referral Referred to [facility] Med P.C.: No
[2019-12-23] MEDS: ATORVASTATIN CA 20 MG TABLET (FP) PO SCH (21:58)
[2019-12-24] MEDS: ACETAMINOPHEN 325 MG TABLET (FP) PO PRN (01:24)
[2019-12-24] MEDS: LISINOPRIL 5 MG TABLET (FP) PO SCH (11:41)
[2019-12-24] MEDS: AMIODARONE HCL 200 MG TABLET PO SCH (11:41)
[2019-12-24] MEDS: CHOLECALCIFEROL (VIT D3) 1,000 UNIT (25 MCG) TABLET PO SCH (11:41)
[2019-12-24 13:58] VITALS: BP 123/65; PULSE 76; TEMP 98
--- NOTE | 2019-12-24 14:20 | DS ---
Physical Exam: SUBJECTIVE: Patient seen and examined at bedside. pt has no acute complaints. pain is well controlled. OBJECTIVE: Vital Signs Period Temp Pulse Resp BP Sys/Munoz Pulse Ox Last 24 Hr 97.6 F-98 F 63-85 18-20 115-134/62-70 93 PHYSICAL EXAM GENERAL: The patient is awake, alert, and fully oriented, in no acute distress. NECK: Trachea midline, full range of motion, supple. LUNGS: Breath sounds equal, clear to auscultation bilaterally, no accessory muscle use. HEART: Regular rate and rhythm, S1, S2 ABDOMEN: Soft, nontender, nondistended, normoactive bowel sounds, no guarding EXTREMITIES: 2+ pulses, warm, well-perfused, no edema. L arm splinted SKIN: Warm, dry, normal turgor, no rashes or lesions noted. HOSPITAL COURSE: Date of Admission:12/20/19 84 y.o. F PMH HTN, A-fib on Xarelto, OA, prior b/l hip fractures admitted for mechanical fall. Imaging shows that pt had a L distal radial fx. pt was evaluated by ortho . Ortho Applied a splint to LUE. pt should f/u with ortho outpt. Pt also had an initial CT head negative for acute bleeds, but since pt was on xarelto rpt imaging after 24 hrs recommended. pt was explained all benefits/ risks and pt refused all further imaging. Pt remained neurologically intact. Xarelto was restarted. on initial ct pt had an incidental R adnexal cyst noted. pt is recommended to f/u outpt for further mgmt of chronic medical conditions. pt may benefit from DEXA scan. Date of Discharge: 12/24/19 Minutes to complete discharge: 36 Discharge Summary Problems reviewed: Yes Reason For Visit: FRACTUER OF DISTAL END OF LEFT RADIUS,STRAIN OF Current Active Problems Fracture of left distal radius (Acute) Strain of right upper arm (Acute) Condition: Stable - Instructions Diet, Activity, Other Instructions: You came into the hospital for evaluation after a fall. Your imaging shows that you have a fracture of your Left wrist. You were seen by the orthopedic physician who placed a splint on your wrist. You should talk to your primary care physician to consider DEXA bone scan. On your Cat scan we incidentally found a right sided adnexal cyst in your pelvis, follow up as an outpatient. Please take Vitamin D 2000 IU daily. Please continue to take your home medications as prescribed. Please remember: you must be non weight bearing on fractured side. you need to seek immediate care should new onset numbness, tingling, or significantly increasing pain occur. keeping the splint clean and dry. avoiding NSAID medications, such as ibuprofen. Please follow up with your primary care physician to manage your primary medical conditions. Please follow up with your orthopedic surgeon or you may follow up with Dr. Dave, regarding your wrist fracture. You are being discharged to a rehab facility to help your muscles get stronger. If you have any new, worsening, or concerning symptoms please return to the ED or call 911. Referrals: Kendall Dave DO [Staff Physician] - Disposition: LONG TERM FACILITY - Home Medications Comprehensive Discharge Medication List: Ambulatory Orders Amiodarone HCl [Cordarone -] 200 mg PO DAILY 12/21/19 Atorvastatin Ca [Lipitor] 20 mg PO HS 12/21/19 Lisinopril [Prinivil] 5 mg PO DAILY 12/21/19 Rivaroxaban [Xarelto] 15 mg PO DAILY 12/21/19 Acetaminophen [Tylenol .Regular Strength -] 650 mg PO Q4H PRN tablet 12/24/19 Cholecalciferol (Vitamin D3) [Vitamin D3 -] 2,000 unit PO DAILY tab 12/24/19 This patient is new to me today: No Emergency Visit: No Critical Care patient: No - Discharge Referral Referred to [facility] No ATTENDING PHYSICIAN STATEMENT I saw and evaluated the patient. I reviewed the resident's note and discussed the case with the resident. I agree with the resident's findings and plan as documented. SUBJECTIVE: OBJECTIVE: ASSESSMENT AND PLAN:
--- NOTE | 2019-12-24 17:17 | PN ---
Teaching Attending Note Name of Resident: Roxana Hahn ATTENDING PHYSICIAN STATEMENT I saw and evaluated the patient. I reviewed the resident's note and discussed the case with the resident. I agree with the resident's findings and plan as documented. SUBJECTIVE: Patient is comfortable with no acute distress. no nausea or vomiting. Vital Signs Temperature 98 F 12/24/19 13:57 Pulse Rate 76 12/24/19 13:57 Respiratory Rate 18 12/24/19 13:57 Blood Pressure 123/65 12/24/19 13:57 O2 Sat by Pulse Oximetry (%) 95 12/24/19 09:00 GENERAL: The patient is awake, alert, and fully oriented, in no acute distress. HEAD: Normal with no signs of trauma. EYES: PERRL, extraocular movements intact, sclera anicteric, conjunctiva clear. ENT: Ears normal, oropharynx clear without exudates, moist mucous membranes. NECK: Trachea midline, full range of motion, supple. LUNGS: Breath sounds equal, clear to auscultation bilaterally, no wheezes, no crackles, no accessory muscle use. HEART:irregularly-irregular , S1, S2 +, CATALINO 3/6 ,no rub or gallop. ABDOMEN: Soft, nontender, nondistended, normoactive bowel sounds, no guarding, no rebound, no hepatosplenomegaly, no masses. EXTREMITIES: 2+ pulses, warm, well-perfused, left distal radial fracture s/p casting NEUROLOGICAL: Cranial nerves II through XII grossly intact. Normal speech, gait not observed. PSYCH: Normal mood, normal affect. SKIN: Warm, dry, normal turgor, no rashes or lesions noted CBCD WBC 7.4 K/mm3 (4.0-10.0) 12/21/19 06:56 RBC 4.04 M/mm3 (3.60-5.2) 12/21/19 06:56 Hgb 12.6 GM/dL (10.7-15.3) 12/21/19 06:56 Hct 37.3 % (32.4-45.2) 12/21/19 06:56 MCV 92.3 fl (80-96) 12/21/19 06:56 MCHC 33.8 g/dl (32.0-36.0) 12/21/19 06:56 RDW 14.4 % (11.6-15.6) 12/21/19 06:56 Plt Count 192 K/MM3 (134-434) 12/21/19 06:56 MPV 9.2 fl (7.5-11.1) 12/21/19 06:56 CMP Sodium 143 mmol/L (136-145) 12/22/19 06:45 Potassium 3.8 mmol/L (3.5-5.1) 12/22/19 06:45 Chloride 112 mmol/L (98-107) H 12/22/19 06:45 Carbon Dioxide 24 mmol/L (21-32) 12/22/19 06:45 Anion Gap 6 MMOL/L (8-16) L 12/22/19 06:45 BUN 14.5 mg/dL (7-18) 12/22/19 06:45 Creatinine 0.6 mg/dL (0.55-1.3) 12/22/19 06:45 Random Glucose 79 mg/dL (74-106) 12/22/19 06:45 Calcium 9.3 mg/dL (8.5-10.1) 12/22/19 06:45 Total Bilirubin 0.6 mg/dL (0.2-1) 12/21/19 06:56 AST 22 U/L (15-37) 12/21/19 06:56 ALT 37 U/L (13-61) 12/21/19 06:56 Alkaline Phosphatase 101 U/L (45-117) 12/21/19 06:56 Total Protein 5.8 g/dl (6.4-8.2) L 12/21/19 06:56 Albumin 3.2 g/dl (3.4-5.0) L 12/21/19 06:56 Home Medications Medication Instructions Recorded Amiodarone HCl [Cordarone -] 200 mg PO DAILY 12/21/19 Atorvastatin Ca [Lipitor] 20 mg PO HS 12/21/19 Ferrous Sulfate [Iron] 325 mg PO Q2D 12/21/19 Lisinopril [Prinivil] 5 mg PO DAILY 12/21/19 Rivaroxaban [Xarelto] 15 mg PO DAILY 12/21/19 Current Medications Generic Name Dose Route Start Last Admin Trade Name Freq PRN Reason Stop Dose Admin Acetaminophen 650 mg 12/21/19 02:47 12/23/19 14:46 Tylenol - PO 650 mg Q4H PRN Administration PAIN LEVEL 6-10 Amiodarone HCl 200 mg 12/22/19 17:45 12/23/19 10:38 Cordarone - PO 200 mg DAILY ANITA Administration Atorvastatin Calcium 20 mg 12/21/19 22:00 12/22/19 21:05 Lipitor - PO 20 mg HS ANITA Administration Cholecalciferol 2,000 unit 12/22/19 10:00 12/23/19 10:39 Vitamin D3 - PO 2,000 unit DAILY ANITA Administration Lisinopril 5 mg 12/22/19 17:45 12/23/19 10:39 Prinivil PO 5 mg DAILY ANITA Administration Rivaroxaban 15 mg 12/22/19 18:00 12/23/19 18:12 Xarelto PO 15 mg DAILY@[address]: no fx is identified.Adnexal cyst 5.4x4cm. Left hand xray ; loss of bone density , acute impaction fracture of distal radius , possible old ulnar styloid fx Ct of the head: negative X-ray of right humurus: degenerative changes , no sign of fx or sublaxation. Pelvis CT: no definite CT evidence of acute fx , adnexal cyst 5.4x4cm right posterior -CT C & L spine negative for fracture; incidental 5.4x4cm R post adnexal cyst noted ASSESSMENT AND PLAN: Patient is an 84yof with PMHx of HTN, A-fib on Xarelto, OA, prior b/l hip fractures admitted for mechanical fall #s/p Mechanical fall s/p L distal radial fracture, ortho on the case who has seen the patient in Ed. on Vit D3 continue #A-fib continue xarelto #HTN: continue home meds #hx of hip replacement # Hx of OA #Right posterior adnexal mass : outpatient w/u Patient refused repeat Ct scan , has no headache. to rehab today
== END 2019-12-24 14:48 | DRG 563 ==
LOC: JER 19:56 → JERBED 23:21 → OBSVTOIN 23:21 → J8W 12-21 02:00
PROVIDERS: ADMIT Internal Medicine; ATTEND Internal Medicine
PROC: 0PSJXZZ Reposition Left Radius, External Approach (ICD-10-PCS; principal; 2019-12-21)
PROC: 2W3FX1Z Immobilization of Left Hand using Splint (ICD-10-PCS; 2019-12-21)
DX: S52.592A Other fractures of lower end of left radius, initial encounter for closed fracture (principal); S46.011A Strain of muscle(s) and tendon(s) of the rotator cuff of right shoulder, initial encounter; I48.91 Unspecified atrial fibrillation; I10 Essential (primary) hypertension; Y92.89 Other specified places as the place of occurrence of the external cause; N85.9 Noninflammatory disorder of uterus, unspecified; R51 Headache; W18.39XA Other fall on same level, initial encounter; Z96.642 Presence of left artificial hip joint
CPT/HCPCS: 36415; 70450-TC; 72125-TC; 72131-TC; 72192-TC; 73060-TC-LT-FY; 73060-TC-RT-FY; 73110-TC-LT-FY; 73130-TC-LT-FY; 80048; 80053; 81003; 83735; 84100; 84443; 85025; 85027; 85610; 85730; 93005; 93010; 97116-GP; 97162-GP; 99285-25